=== PATIENT | male | born 1995 ===

== ENCOUNTER 2022-12-10 09:30 | Emergency (ER) | payer SELFPAY ==
[2022-12-10 09:45] VITALS: BP 130/85; PULSE 87; RESP 16; TEMP 36.8; O2SAT 99; BMI 25.9
--- NOTE | 2022-12-10 09:45 | ED.ALCOHOL ---
HPI - Alcohol General Chief Complaint: General Medical Stated Complaint: ? under infl, found sleeping on porch per ems Time Seen by Provider: 12/10/22 09:42 Source: patient and EMS Mode of arrival: EMS Limitations: no limitations History of Present Illness HPI narrative: 27 yo male with history of alcohol abuse presents to the ER for evaluation after he was found sleeping on a stranger's back porch. Patient admits to drinking heavily last night and says he is still intoxicated. He was drinking with friends where he fell asleep on the reports. He states they then declined knowing him. EMS was called and he was brought to the ER for evaluation. Patient is awake, alert, oriented x3, admitting to alcohol use last night. He denies any other illicit substance use. He denies any falls or trauma. He has not any pain. He is not suicidal. MD complaint: alcohol intoxication Last drink: Hours (ago) Chronic alcohol use: Yes Previous visits for alcohol intoxication: No Recent trauma: No Associated symptoms: denies other symptoms Treatments prior to arrival: none Related Data Allergies Allergy/AdvReac Type Severity Reaction Status Date / Time No Known Allergies Allergy Unverified 03/14/20 16:44 Review of Systems Review of Systems: Yes all other systems are reviewed and are negative [facility] Social History Social History Advance Directives: No Physical Exam ED Vital Signs: Vital Signs - 24 hr 12/10/22 09:45 Temperature 98.2 F Pulse Rate 87 Respiratory Rate 16 Blood Pressure 130/85 Pulse Oximetry 99 Oxygen Delivery Method Room Air BMI result Body Mass Index 25.9 Appearance: Alert. Oriented X3. No acute distress. Appears intoxicated smells of alcohol Head: normocephalic, atraumatic. Eyes: Pupils equal, round and reactive to light. ENT: Pharynx with moist mucous membranes, poor dentition Neck: Normal inspection. Neck supple. CVS: Normal heart rate and rhythm. Pulses normal. Respiratory: No respiratory distress. Breath sounds normal. Skin: Skin warm and dry. Normal skin color. Normal skin turgor. No rashes. Extremities: No lower extremity edema. No joint swelling. Neuro/psych: Oriented X 3. Grossly normal, nonfocal, CN II-XII intact. Normal speech and cognition. Steady gait. Medical Decision Making Medical Decision Making MDM Narrative: 27-year-old male presents to the ER for evaluation after he was found sleeping on a stranger's back porch after a night of drinking. Patient states he drank heavily last night. He denies any trauma. He denies any pain. He is alert, oriented on arrival with a steady gait. He is declining any medical evaluation. His exam is unremarkable, no evidence of trauma. He is declining any need for detox or rehab. He would like to go home. He is stable for discharge home. Differential Diagnosis Differential Diagnoses: The differential diagnosis associated with the presentation includes Alcohol intoxication, polysubstance use, rhabdomyolysis, no evidence of trauma Independent Historian Clinical information obtained from an independent historian. History obtained from or confirmed by: EMS Tests considered The following testing was considered but not selected: Considered lab work, alcohol level however patient refused. Critical Care Time Critical Care Time Critical Care Time: No Discharge Plan Discharge Clinical Impression: Alcohol intoxication Patient Disposition: Home, Self-Care Instructions: Alcohol Intoxication (ED) Additional Instructions: Do not drink alcohol. Follow-up with your doctor. If you develop new or worsening symptoms call 911 or come back to the ER for further evaluation. Interventions: ED Discharge Assessment Last Done: 12/10/22 09:48 Discharge Date/Time: 12/10/22 10:02
--- NOTE | 2022-12-10 09:48 | PC.NURSE ---
eval and dc by pa
== END 2022-12-10 10:02 | disposition home or self-care (01) ==
LOC: HO.ED 09:48
PROVIDERS: Emergency Provider Emergency Medicine
DX: F10.129 Alcohol abuse with intoxication, unspecified (principal); Y90.9 Presence of alcohol in blood, level not specified; Z71.41 Alcohol abuse counseling and surveillance of alcoholic
CPT/HCPCS: 99282

== ENCOUNTER 2025-04-25 18:24 | Emergency (ER) | payer SELFPAY ==
[2025-04-25 18:28] VITALS: BP 126/62; PULSE 61; RESP 14; TEMP 36.4; O2SAT 100; BMI 21.5
--- NOTE | 2025-04-25 18:28 | ED_ITS ---
[facility] - General Adult General Chief complaint: Abdominal Pain Stated complaint: abdominal pain, vomiting Time Seen by Provider: 04/25/25 19:12 Source: patient Mode of arrival: ambulatory Limitations: no limitations History of Present Illness ED Provider: Dr. Franks [facility] narrative: 29-year-old male presented hospital today for evaluation of epigastric pain and left upper quadrant pain. Patient is complaining of nausea and vomiting that started this morning. Denies any fever denies any diarrhea. Patient has poor intake due to nausea and vomiting. Patient does have history a stomach issue in the past that had resolved on its own. Related Data Previous Rx's ?Medication ?Instructions ?Recorded omeprazole 20 mg capsule,delayed 20 mg PO DAILY 14 day s #14 caps 04/25/25 release ondansetron HCl 4 mg tablet 4 mg PO Q8H PRN nausea and 04/25/25 vomiting #14 tabs Allergies Allergy/AdvReac Type Severity Reaction Status Date / Time No Known Allergies Allergy Verified 04/25/25 18:31 Review of Systems Review of Systems: Pertinent review of systems as mentioned in [facility]. All other system otherwise negative. [facility] Past Medical History [facility] Narrative: None Social History Social History Advance Directives: No Advance Directives Information Provided: No Physical Exam ED Exam Exam: General: Pleasant, no distress, interacting appropriately Head: Normacephalic, atraumatic ENT: oral mucosa moist, neck supple, no tracheal deviation Gastrointestinal: Soft, non distended, epigastric pain on exam Neurological: Awake and alert, no facial droop noted Skin: Warm and dry Psychiatric: Appropriate mood and thoughts Vital Signs: Vital Signs - 24 hr 04/25/25 18:28 04/25/25 19:16 Temperature 97.6 F 97.6 F Pulse Rate 61 61 Respiratory Rate 14 14 Blood Pressure 126/62 126/62 Pulse Oximetry 100 100 Oxygen Delivery Method Room Air Room Air BMI result Body Mass Index 21.5 Course Course Course Narrative: 29 yo male presented to ED for evaluation for emesis that started today. No diarrhea. Left sided abdominal pain. Zofran, GI cocktail ordered. Rapid medical screening exam was performed. Patient stable at time of evaluati on. Ernestina Franks DO 04/25/25 1829 Medications Administered Discontinued Medications Generic Name Dose Route Start Last Admin Trade Name Freq PRN Reason Stop Dose Admin Al Hydroxide/Mg Hydroxide 30 ml 04/25/25 18:29 04/25/25 18:57 Magnesium Hydrox/Alum Hydrox 30 Ml Oral.Susp PO 04/25/25 18:30 30 ml ONCE ONE Administration Dicyclomine HCl 10 mg 04/25/25 18:29 04/25/25 18:57 Dicyclomine Hcl 10 Mg Capsule PO 04/25/25 18:30 10 mg ONCE ONE Administration Lidocaine HCl 15 ml 04/25/25 18:29 04/25/25 18:57 Lidocaine Hcl Viscous 2 % 15 Ml Solution MUCOUS MEM 04/25/25 18:30 15 ml ONCE ONE Administration Ondansetron HCl 4 mg 04/25/25 18:29 04/25/25 18:57 Ondansetron Odt 4 Mg Tab.Rapdis TRANSLINGU 04/25/25 18:30 4 mg ONCE ONE Administration Medical Decision Making Medical Decision Making [facility] Narrative: This is a 29-year-old male presented hospital today for evaluation of nausea vomiting epigastric pain left upper quadrant pain. I did give patient is GI cocktail and Zofran. Patient stated that he had relief from the GI cocktail. And Zofran. Able to tolerate p.o. jacinta mariano. Patient stated that he does feel better. We will plan to prescribe patient is 14 days of omeprazole course, Zofran will be prescribed to the patient as well. I suspect patient likely has gastroenteritis. Patient will be discharged home. Return precautions provided. Differential Diagnosis Differential Diagnoses: The differential diagnosis associated with the presentation includes Gastroenteritis, pancreatitis, colitis Discharge Plan Discharge Clinical Impression: Gastroenteritis Patient Disposition: Home, Self-Care Instructions: Gastroenteritis (ED) Prescriptions: New ondansetron HCl 4 mg tablet 4 mg PO Q8H PRN (Reason: nausea and vomiting) Qty: 14 0RF omeprazole 20 mg capsule,delayed release(DR/EC) 20 mg PO DAILY 14 Days Qty: 14 0RF Interventions: ED Discharge Assessment Last Done: 04/25/25 19:16 Discharge Date/Time: 04/25/25 19:18 Print Language: Choose Not To Answer
[2025-04-25] MEDS: Magnesium Hydrox/Alum Hydrox 30 ML ORAL.SUSP PO (18:57)
[2025-04-25] MEDS: Lidocaine HCl Viscous 2 % 15 ML SOLUTION MUCOUS MEM (18:57)
[2025-04-25 19:16] VITALS: BP 126/62; PULSE 61; RESP 14; TEMP 36.4; O2SAT 100
--- OUTSIDE RECORDS SUMMARY | 2025-04-25 20:24 | XMS_ITS ---
Author Organization Unknown ENCOUNTERS Encounter Performer Location Date Diagnosis Diagnosis Status Emergency [address] [id number] [facility] *Note: Encounters from your own facility or health system may be excluded. Allergies, Adverse Reactions, Alerts Allergen Type Severity Identification Date Medications Name Date Quantity Days Supplied GPI Number
== END 2025-04-25 19:18 | disposition home or self-care (01) ==
PROVIDERS: Emergency Provider Student in an Organized Health Care Education/Training Program
DX: K52.9 Noninfective gastroenteritis and colitis, unspecified (principal); R10.13 Epigastric pain; R10.12 Left upper quadrant pain; R11.2 Nausea with vomiting, unspecified
CPT/HCPCS: 99282; 99283